=== PATIENT | male | born 1980 | race African-American/Black ===

== ENCOUNTER 2017-02-24 13:25 | Emergency (ER) | payer SELFPAY ==
--- NOTE | 2017-02-24 14:11 | ER Document Report ---
ED Skin Rash/Insect Bite/Abscs - General Chief Complaint: Insect Bite Stated Complaint: POSSIBLE INSECT BITE Time Seen by Provider: 02/24/17 14:05 Mode of Arrival: Ambulatory Information source: Patient - HPI Patient complains to provider of: Tender/swollen area Onset: Yesterday Onset/Duration: Gradual Quality of pain: Achy Severity: Mild Skin Temperature: Warm Quality of rash: Painful Notes: Patient arrives with complaints of possible insect bite or spider bite to the right forearm. He states that yesterday he noticed an area to the right distal ulnar area that was a possible bite with some mild redness and swelling. States that he tried to squeeze it and now it has become more red and more painful. There has been no drainage from it. He denies any fevers. He denies any numbness, tingling, weakness. No injury. He denies a history of diabetes. He denies any nausea, vomiting, diarrhea. No difficulty breathing or swallowing. He denies any other complaints at this time. - Related Data Allergies/Adverse Reactions: No Known Allergies Allergy (Unverified 02/24/17 13:30) Past Medical History - Social History Smoking Status: Current Every Day Smoker Chew tobacco use (# tins/day): - 30 Frequency of alcohol use: Social Drug Abuse: None Family History: Reviewed & Not Pertinent Renal/ Medical History: Denies: Hx Peritoneal Dialysis Surgical Hx: Negative Review of Systems - Review of Systems -: Yes All other systems reviewed and negative Physical Exam - Vital signs Vitals: Temp Pulse BP Pulse Ox 97.9 F 76 125/76 96 02/24/17 13:29 02/24/17 13:29 02/24/17 13:29 02/24/17 13:29 - Notes Notes: GENERAL: alert, cooperative, nontoxic, no distress. HEAD: normocephalic, atraumatic EYES: conjunctiva pink without discharge, no external redness or swelling. EARS: no external swelling, no external redness NOSE: atraumatic, no external swelling MOUTH/THROAT: mucous membranes moist and pink NECK: soft, supple, full range of motion, no meningismus. CHEST: no distress, lungs clear and equal throughout. No wheezing, rales, rhonchi. CARDIAC: regular rate and rhythm, no murmur, normal capillary refill, normal pulses. BACK: full range of motion, no CVA tenderness. EXTREMITIES: full range of motion of all extremities. Full range of motion of the right wrist. Normal pulse and sensation distally. Compartments are soft. NEURO: alert and oriented 3, no focal deficits, full range of motion of all extremities. PYSCH: appropriate mood, affect. Patient is cooperative. SKIN: pink, warm, dry, no rash. Small area of induration with mild surrounding erythema to the right distal ulnar area of the forearm. No fluctuance. No drainage. No vesicles. Course - Re-evaluation Re-evalutation: 02/24/17 14:24 Patient is nontoxic appearing with stable vitals. The patient has an area of cellulitis to the right forearm with possible mild induration noted. There is no drainable abscess noted at this time. Patient has no history of diabetes, he is afebrile, no other complaints at this time. Due to the fact that the patient has cellulitis and a possible abscess forming, I will double cover with Keflex and Bactrim. Instructed to apply warm compresses to sore area. Will prescribe a small supply of some pain medication as well. He should follow-up if this is not improving the next 3-4 days, sooner for increased pain, fever, increased redness, numbness, tingling, weakness, any further concerns. The patient is noted to have elevated blood pressure during today's emergency department visit. The patient was informed of this finding. The patient was instructed that this may be related to pre-hypertension and requires further evaluation with a primary care provider. The patient has no hypertensive symptoms at this time. The patient's emergency department workup and current diagnosis were explained to the patient and or family. Follow-up instructions were provided. Medications if prescribed were discussed. Instructions for when to return to the emergency department including specific worrisome symptoms were discussed with the patient and/or family. - Vital Signs Vital signs: Temp Pulse Resp BP Pulse Ox 97.9 F 76 125/76 96 02/24/17 13:29 02/24/17 13:29 02/24/17 13:29 02/24/17 13:29 Discharge - Discharge Clinical Impression: Right forearm cellulitis Condition: Stable Disposition: HOME, SELF-CARE Instructions: Cellulitis ([facility]) Additional Instructions: Take medications as prescribed. Apply warm compresses to sore area. Follow-up if not better in 3-4 days, sooner for increased pain, fever, redness, drainage, any further concerns. Your blood pressure was elevated during today's visit. Have this rechecked with your doctor. The medication you were prescribed today may cause drowsiness. Do not drive or operate heavy machinery while taking this medication. Prescriptions: Cephalexin Monohydrate [Keflex 500 mg Capsule] 500 mg PO Q6H 10 Days capsule Hydrocodone/Acetaminophen [[place] 5-325 mg Tablet] 2 tab PO Q6H PRN #10 tab PRN Reason: Sulfamethoxazole/Trimethoprim [Bactrim Ds Tablet] 1 each PO BID #20 tablet Forms: Elevated Blood Pressure Referrals: [facility] [Provider Group] - Follow up as needed
[2017-02-24 14:49] VITALS: BP 124/77
== END 2017-02-24 14:49 | disposition home or self-care (01) ==
LOC: ER 13:25
DX: L03.113 Cellulitis of right upper limb (principal); F17.200 Nicotine dependence, unspecified, uncomplicated; R03.0 Elevated blood-pressure reading, without diagnosis of hypertension
CPT/HCPCS: 99281

== ENCOUNTER 2017-05-08 02:34 | Emergency (ER) | payer SELFPAY ==
--- NOTE | 2017-05-08 02:57 | ER Document Report ---
ED Fall - General Mode of Arrival: Medic Information source: Patient - HPI Patient complains to provider of: Right hip and ankle pain Occurred: Just prior to arrival Where: Home, Other - bathroom Context: Slipped, Fell from standing Associated symptoms: Other - see notes above Location of injury/pain: Other - see notes above <JENNIFER ROBB - Last Filed: 05/08/17 02:52> <ALEM JEFFREY - Last Filed: 05/08/17 05:21> - General Chief Complaint: Fall Injury Stated Complaint: HIP AND ANKLE PAIN Time Seen by Provider: 05/08/17 02:40 Notes: 36 year old male with history of hypertension presents to the ED after slipping on water in the bathroom and injuring his right hip and ankle just prior to arrival. Patient reports pain to this right hip, ankle, shoulder, and thoracic back. Patient states that he hit his right shoulder and head on the wall during the fall, reports dizziness and lightheadedness, but denies loss of consciousness. Patient has not been able to walk since the fall. Patient has had a few alcoholic drinks tonight, but denies mixing anything with energy drinks. Patient is not on any blood thinning medication. (JENNIFER ROBB) - Related data Allergies/Adverse Reactions: No Known Allergies Allergy (Unverified 02/24/17 13:30) Past Medical History - General Information source: Patient - Social History Smoking Status: Current Every Day Smoker Chew tobacco use (# tins/day): No Frequency of alcohol use: Occasional Drug Abuse: None Family History: Reviewed & Not Pertinent - Past Medical History Cardiac Medical History: Reports: Hx Hypertension Renal/ Medical History: Denies: Hx Peritoneal Dialysis Surgical Hx: Negative <JENNIFER ROBB - Last Filed: 05/08/17 02:52> - Social History Smoking Education Provided: Yes - 4 mins <ALEM JEFFREY - Last Filed: 05/08/17 05:21> Review of Systems - Review of Systems Constitutional: No symptoms reported EENT: No symptoms reported Cardiovascular: See HPI, Dizziness, Lightheaded Respiratory: No symptoms reported Gastrointestinal: No symptoms reported Genitourinary: No symptoms reported Male Genitourinary: No symptoms reported Musculoskeletal: See HPI, Back pain, Other - right hip, shoulder, and ankle pain Skin: No symptoms reported Hematologic/Lymphatic: No symptoms reported Neurological/Psychological: No symptoms reported -: Yes All other systems reviewed and negative <SYED ROBBUR - Last Filed: 05/08/17 02:52> Physical Exam <CEZARJENNIFER - Last Filed: 05/08/17 02:52> <ALEM JEFFREY - Last Filed: 05/08/17 05:21> - Vital signs Vitals: Resp Pulse Ox 18 97 05/08/17 02:43 05/08/17 02:43 - Notes Notes: GENERAL: Alert, interacts well. No acute distress. HEAD: Normocephalic, atraumatic. EYES: Pupils equal, round, and reactive to light. Extraocular movements intact. ENT: Oral mucosa moist, tongue midline. NECK: Full range of motion. Supple. Trachea midline. LUNGS: Clear to auscultation bilaterally, no wheezes, rales, or rhonchi. No respiratory distress. HEART: Regular rate and rhythm. No murmurs, gallops, or rubs. ABDOMEN: Soft, non-tender. Non-distended. Bowel sounds present in all 4 quadrants. BACK: Mid to low thoracic tenderness to palpation. No abrasions or bruises. EXTREMITIES: No edema, radial and dorsalis pedis pulses 2/4 bilaterally. No cyanosis. Tenderness to palpation to the right buttock over the greater trochanter and iliac crest. Mild erythema and minimal swelling under the area of erythema to the right hip. Right medial malleolus is non-tender. Right distal third of the lateral malleolus is tender with palpation. No bony deformity. NEUROLOGICAL: Alert and oriented x3. Normal speech. Patellar DTRs 2+ bilaterally. PSYCH: Normal affect, normal mood. SKIN: Warm, dry, normal turgor. See extremity exam above. (CEZARJENNIFER) Further examination reveals no tenderness to palpation across the right shoulder or clavicle, no evidence of trauma to the right shoulder, no malalignment. Is sitting in bed and drinking of water using the right hand without any difficulty. (ALEM JEFFREY) Course <ROBBJENNIFER - Last Filed: 05/08/17 02:52> <ALEM JEFFREY - Last Filed: 05/08/17 05:21> - Re-evaluation Re-evalutation: 05/08/17 04:15 Thoracic spine x-rays are negative for any acute fracture or dislocation. X- rays of the right hip, femur, knee, tib-fib and ankle are all negative for acute fracture or dislocation. Patient still complains of pain to the right ankle. Patient will be placed in Suhail wrap for possible right ankle sprain as well as placed on crutches for the contusion to the right hip and the right ankle sprain. Patient is instructed to remain nonweightbearing for the next 2 days and should he continue to have significant pain follow-up with orthopedics as an outpatient. No imaging studies of the head necessary as there is no loss of consciousness, he is not altered, there is been no vomiting. Patient has no blood thinners. 05/08/17 04:19 Suspect tachycardia came from pain, after medicating for pain tachycardia resolved. 05/08/17 05:21 Patient is known to be hypertensive. Already prescribed medications. (ALEM JEFFREY) - Vital Signs Vital signs: Temp Pulse Resp BP Pulse Ox 98.2 F 13 168/92 H 96 05/08/17 04:41 05/08/17 04:39 05/08/17 04:39 05/08/17 04:39 Procedures - Immobilization Right Ankle Pre-Proc Neuro Vasc Exam: Normal Immobilizer type: Suhail wrap Performed by: PCT Post-Proc Neuro Vasc Exam: Normal, Unchanged from pre-exam Alignment checked and good: Yes <ALEM JEFFREY - Last Filed: 05/08/17 05:21> Discharge <JENNIFER ROBB - Last Filed: 05/08/17 02:52> <ALEM JEFFREY - Last Filed: 05/08/17 05:21> - Discharge Clinical Impression: Tobacco abuse, Tobacco abuse counseling Fall at home Qualifiers: Encounter type: initial encounter Qualified Code(s): W19.XXXA - Unspecified fall, initial encounter Concussion Qualifiers: Encounter type: initial encounter Loss of consciousness presence/duration: without LOC Qualified Code(s): S06.0X0A - Concussion without loss of consciousness, initial encounter Right shoulder pain Qualifiers: Chronicity: acute Qualified Code(s): M25.511 - Pain in right shoulder Right ankle sprain Qualifiers: Encounter type: initial encounter Involved ligament of ankle: calcaneofibular ligament Qualified Code(s): S93.411A - Sprain of calcaneofibular ligament of right ankle, initial encounter Contusion of right hip Qualifiers: Encounter type: initial encounter Qualified Code(s): S70.01XA - Contusion of right hip, initial encounter Condition: Stable Disposition: HOME, SELF-CARE Additional Instructions: Today there is no evidence of broken bones in your shoulder, back, right hip, knee or ankle. You do appear to have bruising to your right hip and a sprain to your right ankle. Sprained Ankle Your sprained ankle results from stretching or tearing of the ligaments which support the ankle. This usually results from twisting the foot inward and under. The ligaments will require time and protection in order to heal properly. Many ankle sprains are quite disabling, and should be taken seriously. The usual treatment for an ankle sprain is cold packs; protection with tape , splints, or wraps; elevation; and staying off the ankle for at least a day. As the ankle improves, you can walk IF it's not painful to bear weight. Sports are best postponed until healing is complete. More serious sprains usually require strengthening exercises after early healing. Your physician has assessed the seriousness of the ligament injury to your ankle. However, the treatment may change, depending on how your ankle progresses. If further exams were recommended, it is important that you follow through. Call the doctor if your foot becomes numb, painful, or severely swollen. Ankle Exercise Program To restore the ankle to normal, it's important to strengthen the muscles that support it -- especially those that lift the foot upward. Good muscle tone will keep stress off the injury while it heals. EARLY - Once the doctor allows you to walk on the ankle, you can begin. Lean your back against a wall. Standing on your heels, lift the balls of both feet up, hold a second, then back down. Work up to 100 repetitions. Next, using the wall for balance, stand on one foot. Lift the heel up, then down. Work up to 100 repetitions for each foot. BALANCE TRAINING - To retrain the ankle to react to "tipping", stand on one foot for two minutes. Go from flat-footed to standing on the toes and back again slowly. Repeat with the other foot. LATER - When your ankle has regained full motion and you're walking pain- free, begin exercise against resistance. In a sitting position, pull the top of the foot towards you against resistance 20 times. Use either elastic material or a weight attached to the toes. Swing the knee so the foot is to the side of the body, and repeat. Forms: Smoking Cessation Education Scribe Attestation: 05/08/17 05:21 I personally performed the services described in the documentation, reviewed and edited the documentation which was dictated to the scribe in my presence, and it accurately records my words and actions. (ALEM JEFFREY) Scribe Documentation - Scribe Written by Andreas:: Andreas Roche, 05/08/2017 0300 acting as scribe for :: Brandy <JENNIFER ROBB - Last Filed: 05/08/17 02:52>
[2017-05-08] MEDS ORDERED: HYDROMORPHONE HCL INJ/PF 2 MG/ML AMPULE IM ONE (03:12)
--- NOTE | 2017-05-08 03:53 | RADIOLOGY REPORT (SQ) ---
EXAM DESCRIPTION: T SPINE AP/LAT CLINICAL HISTORY: fall, midthoracic, right hip, knee and ankle pain COMPARISON: None. FINDINGS: 2 views of the thoracic spine. Leads overlie the chest. T1 not well evaluated on lateral view due to overlying soft tissues. Thoracic vertebral body height preserved. Intervertebral disc height preserved. No subluxation or cortical step-off identified. No widening of the paraspinous lines. No abnormalities of the visualized lungs or mediastinum. Upper abdominal soft tissues unremarkable. No fractures the visualized ribs or clavicles. IMPRESSION: 1. No acute abnormality of the thoracic spine by plain film criteria.
--- NOTE | 2017-05-08 03:53 | RADIOLOGY REPORT (SQ) ---
EXAM DESCRIPTION: TIBIA FIBULA RIGHT CLINICAL HISTORY: fall, midthoracic, right hip, knee and ankle pain COMPARISON: None. FINDINGS: 2 views of the right tibia and fibula. No acute fracture or dislocation. Normal osseous mineralization. No radiopaque foreign bodies. IMPRESSION: No acute fracture or dislocation.
--- NOTE | 2017-05-08 03:58 | RADIOLOGY REPORT (SQ) ---
EXAM DESCRIPTION: FEMUR RIGHT CLINICAL HISTORY: fall, midthoracic, right hip, knee and ankle pain COMPARISON: None. FINDINGS: 2 views of the right femur. No acute fracture or dislocation. Normal osseous mineralization. No radiopaque foreign bodies. IMPRESSION: No acute fracture or dislocation.
--- NOTE | 2017-05-08 03:58 | RADIOLOGY REPORT (SQ) ---
EXAM DESCRIPTION: ANKLE RIGHT COMPLETE CLINICAL HISTORY: fall, midthoracic, right hip, knee and ankle pain COMPARISON: None. FINDINGS: 3 views of the right ankle. No acute fracture or dislocation. Normal osseous mineralization. Base of the fifth metatarsal is intact. Tibial plafond and talar dome are in appropriate alignment. IMPRESSION: No acute fracture or dislocation.
--- NOTE | 2017-05-08 03:59 | RADIOLOGY REPORT (SQ) ---
EXAM DESCRIPTION: KNEE RIGHT 3 VIEWS CLINICAL HISTORY: fall, midthoracic, right hip, knee and ankle pain COMPARISON: None. FINDINGS: 2 views of the right knee. No acute fracture or dislocation. No joint effusion. Joint spaces preserved. IMPRESSION: No acute fracture or dislocation.
--- NOTE | 2017-05-08 04:01 | RADIOLOGY REPORT (SQ) ---
EXAM DESCRIPTION: HIP RIGHT AP/LATERAL CLINICAL HISTORY: fall, midthoracic, right hip, knee and ankle pain COMPARISON: None. FINDINGS: Single frontal view of the pelvis and lateral view of the right hip. No acute fracture or dislocation. Normal osseous mineralization. Joint spaces preserved. Pelvic soft tissues are unremarkable. IMPRESSION: No acute fracture or dislocation
[2017-05-08 05:11] VITALS: BP 168/92
== END 2017-05-08 04:41 | disposition home or self-care (01) ==
LOC: ER 02:34
DX: S06.0X0A Concussion without loss of consciousness, initial encounter (principal); S93.411A Sprain of calcaneofibular ligament of right ankle, initial encounter; S70.01XA Contusion of right hip, initial encounter; M25.511 Pain in right shoulder; W01.0XXA Fall on same level from slipping, tripping and stumbling without subsequent striking against object, initial encounter; Y92.002 Bathroom of unspecified non-institutional (private) residence as the place of occurrence of the external cause; R42 Dizziness and giddiness; M54.9 Dorsalgia, unspecified; I10 Essential (primary) hypertension; F17.200 Nicotine dependence, unspecified, uncomplicated
CPT/HCPCS: 99284; 96372; 73610; 73552; 73502; 73562; 72070; 73590; J1170

== ENCOUNTER 2018-03-06 20:34 | Emergency (ER) | payer SELFPAY ==
--- NOTE | 2018-03-06 20:57 | ER Document Report ---
ED General - General Chief Complaint: Shortness Of Breath Stated Complaint: BREATHING PROBLEM Time Seen by Provider: 03/06/18 20:45 Notes: Patient is a 37-year-old male with a past medical history of asthma who presents with 2 complaints. His first complaint is shortness of breath. The patient states that he has been having shortness of breath feel like he has been having an asthma attack for the past several hours. He could not find his albuterol inhaler. This prompted him to contact EMS. He states that he feels much better after receiving treatment in route. There is initially report that the patient had inhaled methamphetamine which he denies. The patient also complains of right hip pain. He states that a file cabinet hit into his right hip earlier today and he has had a dull, throbbing pain since that time. Denies inability to ambulate. No weakness or numbness to the leg. Nothing improves or worsens the pain. He does not have a general physician. TRAVEL OUTSIDE OF THE [place] IN LAST 30 DAYS: No - Related Data Allergies/Adverse Reactions: No Known Allergies Allergy (Verified 03/06/18 20:45) Past Medical History - General Information source: Patient - Social History Smoking Status: Current Every Day Smoker Frequency of alcohol use: daily Drug Abuse: None Lives with: Spouse/Significant other Family History: Reviewed & Not Pertinent Patient has suicidal ideation: No Patient has homicidal ideation: No - Past Medical History Cardiac Medical History: Reports: Hx Hypertension Renal/ Medical History: Denies: Hx Peritoneal Dialysis Review of Systems - Review of Systems Notes: Constitutional: Negative for fever. HENT: Negative for sore throat. Eyes: Negative for visual changes. Cardiovascular: Negative for chest pain. Respiratory: Positive for shortness of breath. Gastrointestinal: Negative for abdominal pain, vomiting or diarrhea. Genitourinary: Negative for dysuria. Musculoskeletal: Positive for right hip pain Skin: Negative for rash. Neurological: Negative for headaches, weakness or numbness. 10 point ROS negative except as marked above and in HPI. Physical Exam - Vital signs Vitals: Temp Pulse Resp BP Pulse Ox 98.4 F 96 12 160/108 H 96 03/06/18 20:35 03/06/18 20:35 03/06/18 20:35 03/06/18 20:35 03/06/18 20:35 Interpretation: Hypertensive Notes: PHYSICAL EXAMINATION: GENERAL: Well-appearing, well-nourished and in no acute distress. HEAD: Atraumatic, normocephalic. EYES: Pupils equal round and reactive to light, extraocular movements intact, sclera anicteric, conjunctiva are normal. ENT: nares patent, oropharynx clear without exudates. Moist mucous membranes. NECK: Normal range of motion, supple without lymphadenopathy LUNGS: Breath sounds clear to auscultation bilaterally and equal. No wheezes rales or rhonchi. HEART: Regular rate and rhythm without murmurs ABDOMEN: Soft, nontender, normoactive bowel sounds. No guarding, no rebound. No masses appreciated. EXTREMITIES: Normal range of motion, no pitting or edema. No cyanosis. NEUROLOGICAL: No focal neurological deficits. Moves all extremities spontaneously and on command. PSYCH: Restless, picking at himself otherwise pleasant and cooperative SKIN: Warm, Dry, normal turgor, no rashes or lesions noted. Course - Re-evaluation Re-evalutation: 03/06/18 20:55 Patient presents complaining of shortness of breath and feeling like he is having an asthma exacerbation. The patient has no appreciable wheezes or diminished air movement on lung examination to suggest an acute exacerbation at this time although he did receive an albuterol treatment prior to arrival. Chest x-ray is clear. Medical history and exam not consistent with acute PE or pneumonia. Do not suspect ACS. EKG unremarkable. Patient has denied chest pain. In regards to the patient's right hip: There is no visible evidence of trauma or bruising on exam. Full range of motion at the hip. X-ray of the hip is normal. Although patient does deny being on methamphetamine, he is exhibiting some behaviors of being intoxicated on some sort of stimulant. At this time will discharge with return precautions and follow-up recommendations. Verbal discharge instructions given a the bedside and opportunity for questions given. Medication warnings reviewed. Patient is in agreement with this plan and has verbalized understanding of return precautions and the need for primary care follow-up in the next 24-72 hours. - Vital Signs Vital signs: Temp Pulse Resp BP Pulse Ox 98.4 F 96 12 160/108 H 96 03/06/18 20:35 03/06/18 20:35 03/06/18 20:35 03/06/18 20:35 03/06/18 20:35 - Diagnostic Test Radiology reviewed: Image reviewed, Reports reviewed Radiology results interpreted by me: 03/06/18 20:56 Chest x-ray: No acute infiltrate or pneumothorax Right hip x-ray: No acute fracture or dislocation Discharge - Discharge Clinical Impression: Asthma attack Qualifiers: Asthma severity: mild Asthma persistence: intermittent Qualified Code(s): J45.21 - Mild intermittent asthma with (acute) exacerbation Injury of right hip Qualifiers: Encounter type: initial encounter Qualified Code(s): S79.911A - Unspecified injury of right hip, initial encounter Condition: Good Disposition: HOME, SELF-CARE Additional Instructions: You were seen for an asthma exacerbation. Your symptoms improved with treatment here in the emergency department. However, it is very important that you return to the emergency department immediately if you began to have worsening difficulty breathing that does not respond to your normal home nebulizers. Please also follow closely with your primary care physician. you should also return to emergency department if you develop fever greater than 101 , persistent cough, persistent vomiting, pass out, or any other symptoms that are concerning to you. The x-ray of your right hip is otherwise normal. You may take Tylenol or ibuprofen per box instructions as needed for pain or discomfort to the area.
[2018-03-06] MEDS ORDERED: ALBUTEROL SULFATE 0.083% NEB 2.5 MG/3 ML AMPUL NEB ONE (21:48)
--- NOTE | 2018-03-06 21:51 | RADIOLOGY REPORT (SQ) ---
EXAM DESCRIPTION: X-ray single view chest. CLINICAL HISTORY: 37 years Male, sob COMPARISON: None. TECHNIQUE: Single portable view of the chest performed on 03/06/2018 at 9:30 PM FINDINGS: The lungs are well expanded and are clear. There is no evidence of a pneumothorax. The cardiac silhouette is normal in size and configuration. The mediastinal contours are normal. No acute osseous abnormality is identified. No focal soft tissue abnormalities are seen. Lines and tubes: None. IMPRESSION: No evidence of acute intrathoracic disease.
--- NOTE | 2018-03-06 21:53 | RADIOLOGY REPORT (SQ) ---
CLINICAL DATA: 37-year-old male with right hip pain TECHNICAL DATA: Two x-ray views of the right hip were performed on 03/06/2018 at 9:27 PM. An AP pelvis and frog-leg lateral view of the right hip were performed. COMPARISONS: None FINDINGS: There is no evidence of fracture or dislocation. There is no significant arthritis or degenerative change. No focal lytic or sclerotic bone lesions are seen. Bone mineralization is normal No focal soft tissue abnormalities are identified. IMPRESSION: No evidence of acute osseous injury involving the pelvis and right hip.
--- NOTE | 2018-03-06 22:01 | EKG REPORT ---
SEVERITY:- NORMAL ECG - SINUS RHYTHM : Confirmed by: Radha St 06-Mar-2018 22:00:16
[2018-03-06] MEDS ORDERED: IBUPROFEN 600 MG TABLET PO ONE (22:12)
[2018-03-06 22:15] VITALS: BP 154/99
[2018-03-06] MEDS: ALBUTEROL SULFATE HFA (90 MCG/PUFF) 200 PUFF/8.5 GM MDI IH ONE ×2 (22:26→22:37)
== END 2018-03-06 22:37 | disposition home or self-care (01) ==
LOC: ER 20:34
DX: J45.21 Mild intermittent asthma with (acute) exacerbation (principal); R06.02 Shortness of breath; S79.911A Unspecified injury of right hip, initial encounter; M25.551 Pain in right hip; W22.8XXA Striking against or struck by other objects, initial encounter; F17.200 Nicotine dependence, unspecified, uncomplicated; I10 Essential (primary) hypertension
CPT/HCPCS: 93005; 94640; 99285; 71045; 73502; 93010; J3490

== ENCOUNTER 2019-02-24 12:16 | Emergency (ER) | payer SELFPAY ==
[2019-02-24 12:38] VITALS: BP 125/85
[2019-02-24] MEDS ORDERED: CIPROFLOXACIN HCL/DEXAMETH OTIC DROP 7.5 ML AU ONE (13:13)
--- NOTE | 2019-02-24 13:18 | ER Document Report ---
HPI - HPI Time Seen by Provider: 02/24/19 13:06 Notes: Patient is a an otherwise healthy 38-year-old male presenting with bilateral ear pain. Denies any fevers, drainage from the area reports slightly muffled hearing. Past Medical History - General Information source: Patient - Social History Smoking Status: Never Smoker Frequency of alcohol use: None Drug Abuse: None Family History: Reviewed & Not Pertinent - Past Medical History Cardiac Medical History: Reports: Hx Hypertension Renal/ Medical History: Denies: Hx Peritoneal Dialysis Vertical Provider Document - CONSTITUTIONAL Notes: PHYSICAL EXAMINATION: GENERAL: Well-appearing, well-nourished and in no acute distress. HEAD: Atraumatic, normocephalic. EYES: Pupils equal round extraocular movements intact, conjunctiva are normal. ENT: Nares patent, bilateral TMs slightly obscured by cerumen, no obvious erythema or bulging. Bilateral ear canals erythematous and macerated. NECK: Normal range of motion LUNGS: No respiratory distress Musculoskeletal: Normal range of motion NEUROLOGICAL: Normal speech, normal gait. PSYCH: Normal mood, normal affect. SKIN: Warm, Dry, normal turgor, no rashes or lesions noted. - INFECTION CONTROL TRAVEL OUTSIDE OF THE [place] IN LAST 30 DAYS: No Course - Re-evaluation Re-evalutation: Exam consistent with otitis externa. No mastoid tenderness present. Will place patient on Ciprodex drops. Patient given ED return precautions, patient verbalizes understanding and agreement with this. The patient's emergency department workup and current diagnosis were explained to the patient and or family. Follow-up instructions were provided. Medications if prescribed were discussed. Instructions for when to return to the emergency department including specific worrisome symptoms were discussed with the patient and/or family. - Vital Signs Vital signs: Temp Pulse Resp BP Pulse Ox 98.1 F 61 18 125/85 100 02/24/19 12:36 02/24/19 12:36 02/24/19 12:36 02/24/19 12:36 02/24/19 12:36 Discharge - Discharge Clinical Impression: Otitis externa Qualifiers: Otitis externa type: unspecified type Chronicity: acute Laterality: bilateral Qualified Code(s): H60.503 - Unspecified acute noninfective otitis externa, bilateral Condition: Stable Disposition: HOME, SELF-CARE Instructions: Otitis Externa ([facility]) Additional Instructions: Otitis Externa You have otitis externa -- an infection of the outer ear canal. This can be very painful. It's sometimes called "swimmer's ear," because it often occurs after prolonged water exposure. Many things, such as earwax and dirt in the ear, can contribute to it. The usual treatment is antibiotic/antiinflammatory ear drops. Occasionally, a wick will be placed in the ear to draw in the medicine. If the infection is severe, an oral antibiotic may be prescribed. Pain medication is often needed. Avoid getting water in the ear. Outer ear infections often take longer to heal than you might expect. Some tenderness and ache in the ear may persist for about two weeks. See your physician if you fail to improve as expected. Call the doctor at once if you develop fever, increasing swelling (particularly if it makes your ear "poke out"), severe headache, stiff neck, or decreased hearing. Use the ciprodex drops 4 drops twice daily for 7 days. Referrals: TYLER HU PA-C [Primary Care Provider] - Follow up as needed
== END 2019-02-24 13:24 | disposition home or self-care (01) ==
LOC: ER 12:16
DX: H60.503 Unspecified acute noninfective otitis externa, bilateral (principal); I10 Essential (primary) hypertension
CPT/HCPCS: 99282; J3490